=== PATIENT | female | born 1970 | race Caucasian/White ===

== ENCOUNTER 2016-08-22 09:28 | Outpatient (CLI) | payer OTHER ==
--- NOTE | 2016-08-22 13:22 | ULT ---
RIGHT UPPER QUADRANT ULTRASOUND: Date: 08-22-16 Comparison: Epigastric pain for a couple of years, bloating. Technique: Multiplanar grayscale sonographic imaging of the right upper quadrant provided. FINDINGS: Imaged portions of the pancreas are unremarkable. The tail is obscured by bowel gas. The hepatic parenchyma is mildly heterogenous and echogenic which may signify hepatocellular disease such as steatosis. The right kidney demonstrates no stone, hydronephrosis or mass lesion and measu res approximately 12.5 cm in craniocaudal dimension. The common bile duct measures 5 mm, within normal limits. No gallbladder wall thickening or gallstones. No pericholecystic fluid. Question small volume sludge within the gallbladder lumen. IMPRESSION: 1. No gallbladder wall thickening, pericholecystic fluid, or gallstones seen. Probable mild sludge layers within the gallbladder dependently. The clinical pharmacologist reports a positive Santana's sign, signi ficance uncertain. Clinical correlation required. 2. Increased echogenicity of the hepatic parenchyma as detailed above. POS: [facility]
== END 2016-08-22 09:29 | disposition home or self-care (01) ==
LOC: MADULT 09:28
PROVIDERS: ATTEND Family Medicine
DX: R10.13 Epigastric pain (principal)
CPT/HCPCS: 76705

== ENCOUNTER 2016-10-02 09:30 | Outpatient (CLI) | payer OTHER ==
[2016-10-02 10:13] LABS: Hemoglobin A1c 8.6 % (4.0-6.0)
== END 2016-10-02 09:31 ==
LOC: MADLABBHPM 09:30
PROVIDERS: ATTEND Family Medicine
DX: E55.9 Vitamin D deficiency, unspecified (principal); E11.9 Type 2 diabetes mellitus without complications
CPT/HCPCS: 36415; 82306; 83036

== ENCOUNTER 2017-01-31 13:52 | Outpatient (CLI) | payer OTHER ==
[2016-12-31 10:18] LABS: Hemoglobin A1c 8.9 % (4.0-6.0)
[2016-12-31 10:23] LABS: Anion Gap 12 mmol/L (10-20); BUN (Urea Nitrogen) 10 mg/dL (7.0-18.7); Calc. Creatinine Clearance 0 mL/min (70-130); Calcium 9.3 mg/dL (7.8-10.44); Carbon Dioxide 24 mmol/L (22-29); Chloride 104 mmol/L (98-107); Estimated GFR-MDRD 84; Glucose 198 mg/dL (70-105); Potassium 4.2 mmol/L (3.5-5.1); Sodium 136 mmol/L (136-145)
== END 2017-01-31 13:53 | disposition home or self-care (01) ==
LOC: MADLABBHPM 13:52
PROVIDERS: ATTEND Family Medicine
DX: E11.9 Type 2 diabetes mellitus without complications (principal)
CPT/HCPCS: 36415; 80048; 83036